=== PATIENT | female | born 1970 | race Caucasian/White ===

== ENCOUNTER 2021-10-06 16:18 | Emergency (ER) | payer MEDICAID ==
[~2021-10-06] VITALS: Ht 152.4 cm; Wt 93.4 kg
[2021-10-06 16:22] VITALS: BP 159/99
--- NOTE | 2021-10-06 16:26 | NUR ---
PT AMBULATED TO BED 06.
--- NOTE | 2021-10-06 16:30 | NUR ---
ERMD AT BEDSIDE.
--- NOTE | 2021-10-06 16:32 | NUR ---
DR. LYNN BEDSIDE EVALUATING PT
[2021-10-06] MEDS ORDERED: NACL 0.9% 1,000 ML IV ONE ×2 (16:40→17:40)
[2021-10-06] MEDS ORDERED: KETOROLAC 15 MG/ML VIAL IVP ONE (16:40)
[2021-10-06] MEDS ORDERED: ONDANSETRON 4 MG/2 ML VIAL IVP ONE (16:40)
--- NOTE | 2021-10-06 16:41 | NUR ---
URINE COLLECTED AND HANDED TO INTERNET SITE DES[employer]ER GIANNA LOVETT
--- NOTE | 2021-10-06 16:44 | NUR ---
PT PROVIDED WITH WARM BLANKET BEDSIDE
--- NOTE | 2021-10-06 16:55 | NUR ---
51 Y/O Female BIB family for c/o RLQ pain x 3 days. Denies any recent trauma, is s/p cholecystectomy. Abd is soft and tender. Abd sounds noted x4. Pt endorses N/V and denies any blood in patty at this time. Pt AOX4, able to make needs known. Resp even and unlabored. Denies CP PmHx: cholecystectomy. Allergies: Denies
--- NOTE | 2021-10-06 16:57 | NUR ---
PT TAKEN TO CT VIA [facility].
[2021-10-06 17:04] LABS: APPEARANCE,URINE CLEAR (CLEAR); BILIRUBIN,URINE NEGATIVE (NEGATIVE); BLOOD, URINE 2+ (NEGATIVE); COLOR,URINE YELLOW (YELLOW); LEUKOCYTE ESTERASE ,URINE NEGATIVE (NEGATIVE); NITRITE, URINE NEGATIVE (NEGATIVE); UGLUCOSE NEGATIVE (NEGATIVE)
--- NOTE | 2021-10-06 17:11 | NUR ---
PT RETURNED TO BED [address] [facility] [facility]
--- NOTE | 2021-10-06 17:15 | NUR ---
LAB BEDSIDE COLLECTING BLOODWORK
[2021-10-06 17:25] LABS: BASOPHILS # (AUTO) 0.1 K/uL (0.00-0.22); BASOPHILS % (AUTO) 0.5 % (0.0-2.0); EOSINOPHILS # (AUTO) 0.2 K/uL (0-0.4); EOSINOPHILS % (AUTO) 1.7 % (0.0-4.0); HEMATOCRIT 42.3 % (36-48); HEMOGLOBIN 14.1 g/dL (12.0-16.0); LYMPHOCYTES # (AUTO) 2.8 K/uL (2.5-16.5); LYMPHOCYTES % (AUTO) 28.8 % (20.5-51.1); MEAN CORPUSCULAR HEMOGLOBIN 28 pg (27-31); MEAN CORPUSCULAR HGB CONC 33 g/dL (33-37); MEAN CORPUSCULAR VOLUME 83.8 fL (80-94); MONOCYTES # (AUTO) 0.8 K/uL (0.8-1.0); MONOCYTES % (AUTO) 8.1 % (1.7-9.3); NEUTROPHILS # (AUTO) 5.9 K/uL (1.8-7.7); NEUTROPHILS % (AUTO) 60.9 % (42.2-75.2); PLATELET COUNT (AUTO) 304 K/uL (140-450); RED BLOOD CELL COUNT(AUTO) 5.05 MIL/uL (4.20-5.40); RED CELL DISTRIBUTION WIDTH 14.6 % (11.6-13.7); WHITE BLOOD COUNT (AUTO) 9.8 K/uL (4.8-10.8)
[2021-10-06 17:29] LABS: WBC,URINE NONE SEEN /HPF (0-5)
[2021-10-06] MEDS ORDERED: PIPERACILLIN/TAZOBACTAM 3.375 GM in DEXTROSE 5% 50 ML IV ONE (17:40)
[2021-10-06 17:42] LABS: ALBUMIN 3.5 g/dL (3.4-5.0); ANION GAP 9.7 (8-16); CARBON DIOXIDE 28.1 mmol/L (21-32); CREATININE 0.9 mg/dL (0.6-1.3); POTASSIUM 3.8 mmol/L (3.5-5.1); TOTAL BILIRUBIN 0.4 mg/dL (0.0-1.0)
--- NOTE | 2021-10-06 18:41 | NUR ---
Dr Torrez at bedside to go over results with pt
--- NOTE | 2021-10-06 19:19 | NUR ---
Pt report given to MARGARET Murry. Transfer of care at this time.
[2021-10-06] MEDS ORDERED: ACET-10509 PO (19:57)
[2021-10-06 20:18] VITALS: BP 145/87
--- NOTE | 2021-10-06 20:18 | NUR ---
Patient discharged with v/s stable. Written and verbal after care instructions given and explained. Patient verbalized understanding. Ambulatory with steady gait. All questions addressed prior to discharge. Advised to follow up with PMD.
--- NOTE | 2021-10-07 14:30 | NUR ---
LATE ENTRY, 0.9% NS IV FLUIDS DISCONTINUED AT 2018 ON 10/06/21.
== END 2021-10-06 20:18 | disposition home or self-care (01) ==
LOC: MED 16:18
DX: K43.9 Ventral hernia without obstruction or gangrene (principal); K42.9 Umbilical hernia without obstruction or gangrene; D21.9 Benign neoplasm of connective and other soft tissue, unspecified; Z90.49 Acquired absence of other specified parts of digestive tract; Z79.899 Other long term (current) drug therapy; Z98.890 Other specified postprocedural states
CPT/HCPCS: 36415; 74176; 76856; 80053; 81001; 81025; 83690; 85025; 93976; 96361; 96374; 96375; 99285; J1885; J2405; J7030; Q0092